=== PATIENT | female | born 1930 | race Caucasian/White ===

== ENCOUNTER 2017-12-02 17:46 | Emergency (ER) | payer MEDICARE, OTHER ==
--- NOTE | 2017-12-02 18:36 | EDM.PDOC ---
ED HPI GENERAL MEDICAL PROBLEM - General Chief Complaint: General Stated Complaint: FELL AND HIT HER HEAD Time Seen by Provider: 12/02/17 17:55 Source of Information: Reports: Patient, Family (daughters) History Limitations: Reports: No Limitations - History of Present Illness INITIAL COMMENTS - FREE TEXT/NARRATIVE: Pleasant 87-year-old female in her normal state of health was taking some peach towels she hung out to dry on her clothes belt changer and was trying to retrieve these because the wind was picking up, she lost her footing and tripped on the sidewalk falling directly onto her face. She noticed bleeding immediately coming from her nose. She was unable to get up on her own and pushed her Lifeline that she wears around her neck. Her daughter was notified and she seen that her mother had an abrasions and was bleeding from the nose and had a swelling on her head frontal lobe. Patient denies any loss of consciousness. She denies headache. She denies double vision. She denies jaw pain or difficulty talking. She denies increased pain or discomfort earlier difficulty with balance when she was able to stand for ambulation. She has no numbness or tingling in her extremities she denies any ear pain or bleeding from the ears. She has no dental pain or bleeding from the mouth. She denies any difficulty breathing, labored breathing or shortness of breath. She she denies chest pain. She was brought in by her daughter to the emergency room to be evaluated. She is not on any blood thinners or anticoagulation therapy Onset: Today Onset Date: 12/02/17 Duration: Minutes: Location: Reports: Head, Face Quality: Reports: Throbbing Severity: Mild Improves with: Reports: Rest Worsens with: Reports: None Associated Symptoms: Reports: No Other Symptoms. Denies: Confusion, Chest Pain , Headaches, Nausea/Vomiting, Seizure, Shortness of Breath, Syncope, Weakness - Related Data Allergies Allergy/AdvReac Type Severity Reaction Status Date / Time No Known Drug Allergies Allergy Cannot Verified 12/02/17 18:05 Remember Home Meds: Home Meds . [No Known Home Meds] 12/02/17 [History] Social & Family History - Tobacco Use Smoking Status *Q: Never Smoker Second Hand Smoke Exposure: No - Caffeine Use Caffeine Use: Reports: Coffee, Soda - Recreational Drug Use Recreational Drug Use: No ED ROS GENERAL - Review of Systems Review Of Systems: ROS reveals no pertinent complaints other than HPI. ED EXAM, GENERAL - Physical Exam Exam: See Below Exam Limited By: No Limitations General Appearance: Alert, WD/WN, No Apparent Distress Eye Exam: Bilateral Eye: EOMI, PERRL Ears: Normal External Exam, Hearing Grossly Normal, Normal TMs Nose: Other (Abrasion over the nose. Patient has no tenderness to palpation or crepitation of the nose) Throat/Mouth: Normal Inspection, Normal Lips, Normal Oropharynx, Normal Voice, No Airway Compromise Head: Other (Abrasion over the frontal lobe of the head with hematoma of the scalp frontal lobe) Neck: Normal Inspection, Supple, Non-Tender, Full Range of Motion Respiratory/Chest: No Respiratory Distress, Lungs Clear, Normal Breath Sounds Cardiovascular: Normal Peripheral Pulses, Regular Rate, Rhythm GI/Abdominal: Soft Back Exam: Normal Inspection, Full Range of Motion Extremities: Normal Inspection, Normal Range of Motion, Non-Tender, Normal Capillary Refill Neurological: Alert, Oriented, CN II-XII Intact, Normal Cognition, Normal Gait, No Motor/Sensory Deficits Psychiatric: Normal Affect, Normal Mood Skin Exam: Other (Abrasions that were cleaned up with the watering triple antibiotic placed over the frontal aspect of the head and scalp and nose) Lymphatic: No Adenopathy Course - Vital Signs Last Recorded V/S: Last Vital Signs Temp 97.3 F 12/02/17 17:57 Pulse 88 12/02/17 17:57 Resp 20 12/02/17 17:57 BP 175/100 H 12/02/17 17:57 Pulse Ox 95 12/02/17 17:57 - Orders/Labs/Meds Orders: Active Orders 24 hr Category Date Time Status Head wo Cont [CT] Stat Exams 12/02/17 18:02 Ordered - Radiology Interpretation CT Results Date: 12/02/17 CT Results Time: 19:40 - Re-Assessments/Exams Free Text/Narrative Re-Assessment/Exam: 12/02/17 19:44 CT head wo iv Findings: Soft tissue swelling seen in the frontal region. There is no mass or mass effect There are no extra-axial fluid collection There is no hemorrhage or hydrocephalus There are no sites of abnormal attenuation Impression: No plain CT evidence of acute intracranial process Departure - Departure Time of Disposition: 19:46 Disposition: Home, Self-Care 01 Condition: Good Clinical Impression: Head trauma Qualifiers: Encounter type: initial encounter Qualified Code(s): S09.90XA - Unspecified injury of head, initial encounter Hematoma of frontal scalp Qualifiers: Encounter type: initial encounter Qualified Code(s): S00.03XA - Contusion of scalp, initial encounter - Discharge Information Instructions: Head Injury, Adult Referrals: PCP,Not In Area [Primary Care Provider] - Forms: ED Department Discharge Additional Instructions: 1. Patient should have observation over the next 12-14 hours. 2. Any change in mental status patient should be brought back into the emergency room for reevaluation. 3. Follow-up with your primary care next week just for quick recheck. - My Orders Last 24 Hours: My Active Orders 12/02/17 18:02 Head wo Cont [CT] Stat - Assessment/Plan Last 24 Hours: My Active Orders 12/02/17 18:02 Head wo Cont [CT] Stat Assessment:: 1. Head trauma 2. Frontal scalp hematoma Plan: 1. Change dressing in 3 days. 2. Keep finger clean and dry. 3. F/U with Primary care if redness or signs of infection are concern
== END 2017-12-02 20:00 | disposition home or self-care (01) ==
LOC: KA.ED 17:46
DX: S09.90XA Unspecified injury of head, initial encounter (principal); S00.03XA Contusion of scalp, initial encounter; S00.31XA Abrasion of nose, initial encounter; W01.198A Fall on same level from slipping, tripping and stumbling with subsequent striking against other object, initial encounter; Y93.89 Activity, other specified
CPT/HCPCS: 70450; 99284